=== PATIENT | male | born 1990 | race African-American/Black ===

== ENCOUNTER 2017-03-11 11:06 | Emergency (ER) | payer OTHER | END 2017-03-11 11:30 | disposition home or self-care (01) | LOC: CFTX 11:06 → CED 11:06 → CFTX 11:24 | DX: L02.214 Cutaneous abscess of groin (principal); J45.909 Unspecified asthma, uncomplicated | CPT/HCPCS: 99282 ==

== ENCOUNTER 2017-06-02 22:47 | Emergency (ER) | payer OTHER ==
[~2017-06-02] VITALS: Ht 180.3 cm; Wt 86.2 kg
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
== END 2017-06-03 01:20 | disposition home or self-care (01) ==
LOC: CED 22:47
DX: S60.221A Contusion of right hand, initial encounter (principal); Y04.0XXA Assault by unarmed brawl or fight, initial encounter; Y92.9 Unspecified place or not applicable
CPT/HCPCS: 29125; 73090; 73110; 73130; 96372; 99283; J1885